=== PATIENT | female | born 1960 | race Caucasian/White ===

== ENCOUNTER → 2020-05-15 | Outpatient (CLI) | payer OTHER | LOC: SJCVC 08:45 | PROVIDERS: ATTEND Internal Medicine Cardiovascular Disease | DX: R94.31 Abnormal electrocardiogram [ECG] [EKG] (principal); I42.0 Dilated cardiomyopathy; I50.22 Chronic systolic (congestive) heart failure ==

== ENCOUNTER 2020-06-01 06:32 | Observation (INO) | payer OTHER ==
[~2020-06-01] VITALS: Ht 157.5 cm; Wt 49.9 kg
[2020-06-01 07:13] VITALS: BP 103/56
[2020-06-01] MEDS ORDERED: NORVASC10 MG PO (07:25)
[2020-06-01] MEDS ORDERED: ASA81BEC PO (07:26)
[2020-06-01] MEDS ORDERED: VITAMIN C500 M2 PO (07:26)
[2020-06-01] MEDS ORDERED: LIPITOR10 MG PO (07:26)
[2020-06-01] MEDS ORDERED: CARVEDILOL12.5 MG PO (07:28)
[2020-06-01] MEDS ORDERED: B COMPLEX1 EACH PO (07:28)
[2020-06-01] MEDS ORDERED: VRAYLAR1.5 MG PO (07:28)
[2020-06-01] MEDS ORDERED: LEVOXYL88 MCG PO (07:29)
[2020-06-01] MEDS ORDERED: PRINIVIL20 M1 PO (07:30)
[2020-06-01] MEDS ORDERED: SINGULAIR 10 MG10 MG PO (07:30)
[2020-06-01] MEDS ORDERED: OMEPRAZOLE 20 M20 M1 PO (07:31)
[2020-06-01] MEDS ORDERED: OXYBUTYNIN 5 MG5 M1 PO (07:31)
[2020-06-01] MEDS ORDERED: SEROQUEL 100 M100 M1 PO (07:32)
[2020-06-01 07:40] LABS: ABSOLUTE NEUTROPHILS 4.8 thou/uL (1.4-8.2); BASOPHILS 0.6 % (0.0-2.0); EOSINOPHILS 2.6 % (0.0-3.0); HEMATOCRIT 38.3 % (37.0-47.0); HEMOGLOBIN 13.4 gm/dL (12.0-15.0); LYMPHOCYTES 25.9 % (24.0-44.0); MCH 33.5 pg (26.0-34.0); MCHC 34.9 g/dL (28.0-37.0); MCV 96.1 fL (80.0-100.0); MONOCYTES 10.2 % (1.0-8.0); PLATELET COUNT 252 thou/uL (150-400); POLYS 60.7 % (36.0-66.0); RBC 3.99 mil/uL (4.20-5.00)
[2020-06-01 07:51] LABS: POTASSIUM 3.3 mmol/L (3.5-5.1)
[2020-06-01 07:57] LABS: ALBUMIN 3.5 g/dL (3.4-5.0); TOTAL PROTEIN 7.2 g/dL (6.4-8.2)
[2020-06-01 08:07] LABS: APTT 27.1 Seconds (24.5-32.8)
[2020-06-01 13:00] VITALS: BP 110/71
--- NOTE | 2020-06-01 13:16 | P ---
[facility] [place] [address] PROCEDURE REPORT Name: RAJESH SHERWOOD Room #: 211-P [facility].#: [id number] Admission: 06/01/20 Attend Phys: Sergo Hernández MD Discharge: Date of : 62 Report #: [id number] THIS REPORT FOR: cc: YUNG HALL Physician not on staff Sergo Hernández MD ~ CC: YUNG Nevarez DO Sergo Hernández Physician staff PROCEDURES PERFORMED: Dual-chamber ICD implantation. PREOPERATIVE DIAGNOSES: 1. Chronic left ventricular systolic heart failure. 2. Ischemic cardiomyopathy. 3. [place] [employer] functional class II-III heart failure. HISTORY: The patient is a 59-year-old female with a history of chronic LV systolic heart failure, EF of less than 35% with an ischemic cardiomyopathy and [place] [employer] functional class II-III heart failure symptoms. She was here for ICD implantation for primary prevention of sudden cardiac . She also has sinus bradycardia, on medications and will therefore undergo dual-chamber device. ANESTHESIA: The patient underwent MAC anesthesia with no anesthesia-related complications. DESCRIPTION OF PROCEDURE: The patient underwent informed consent. We discussed the details of the procedure including the risks, which include, but not limited to bleeding, infection, vascular damage, cardiac perforation, pneumothorax. The patient was brought to EP laboratory in fasting and sedated state, prepped and draped in a sterile fashion and I injected lidocaine at the incision site. Incision was made. A pocket was created over the prepectoral fascia. Access was obtained twice to the left axillary vein. Sheaths were positioned using the modified Seldinger technique and a single coil ICD lead was positioned in the right ventricular apex and an atrial lead was positioned in right atrial appendage both with adequate pacing and sensing thresholds and these were sutured to the prepectoral fascia. Device was connected. Tug test was performed. The pocket was irrigated with vancomycin. The pocket was closed in 2 layers and surgical glue was placed to outer skin layer. The patient awoke neurologically and hemodynamically intact. No complications and no significant bleeding. The implanted device was a Medtronic, model #EQDO0G1, serial #[id number]. The atrial lead was a Medtronic model #5076, 45 cm, serial #[id number] with a P-wave [facility] [address] [place] [address] PROCEDURE REPORT Name: RAJESH SHERWOOD ROCCO Ronny Room #: 211-P [facility] CharanKarina#: [id number] Admission: 06/01/20 Attend Phys: Sergo Hernández MD Discharge: Date of : 62 Report #: [id number] of 3.3 millivolts, pacing impedance of 686 ohms, pacing threshold 0.8 volts at 0.5 milliseconds. The RV lead was a Medtronic model #6935, 55 cm, serial #[id number] with R-wave of 8.3 millivolts, pacing impedance of 706 ohms and a pacing threshold 0.4 volts at 0.5 milliseconds. The device was programmed to DDDR 60-130 mode. VT monitor zone was set at 150-180. The VT zone was set at 180-220 with burst followed by ramp followed by max output shocks. VF zone was set at greater than 220 beats per minute with ATP while charging followed by max output shocks. CONCLUSIONS: 1. Successful dual-chamber ICD implantation. 2. Satisfactory atrial and ventricular pacing and sensing thresholds. <ELECTRONICALLY SIGNED> By: Sergo Hernández MD 06/01/20 1316 1023 1314 Sergo Hernández MD /nt
--- NOTE | 2020-06-01 14:30 | NUR ---
PT ARRIVED TO UNIT APPROX 13:05. DENIES PAIN. IMMOBILIZER IN PLACE. ADMISSION INFORMATION COMPLETED. EDUCATION PROVIDED TO PATIENT. FREQUENTLY USED ITEMS WITHIN REACH OF PATIENT. PT AGREES TO CALL FOR ASSIST.
[2020-06-01 16:48] VITALS: BP 111/72
[2020-06-01 20:00] VITALS: BP 125/62
[2020-06-02 00:10] VITALS: BP 141/71
[2020-06-02 04:13] VITALS: BP 138/84
--- NOTE | 2020-06-02 04:22 | NUR ---
PT IS ALERT AND ORIENTED X4. LUNGS ARE CLEAR ON ROOM AIR. ABDOMEN IS SOFT AND FLAT. BOWEL SOUNDS POSITIVE. REQUSTED PAIN MEDS FOR LEFT CHEST PAIN. PAIN MEDS GIVEN TO PT. UP WITH MINIMAL ASSIST TO BATHROOM TO VOID. RESTING AND WATCHING TV THIS EVENING. CALL LIGHT WITHIN REACH IF NEEDS ASSISTANCE
[2020-06-02 07:14] VITALS: BP 110/64
[2020-06-02 07:45] VITALS: BP 110/64
[2020-06-02 10:50] VITALS: BP 110/64
[2020-06-02 11:05] VITALS: BP 113/72
== END 2020-06-02 12:30 | disposition home or self-care (01) ==
LOC: CATH 06:32 → LAB 09:46 → CATH 11:41 → LAB 12:19 → 2N 13:12 → LAB 15:42 → 2N 06-02 12:30
PROVIDERS: ADMIT Internal Medicine Cardiovascular Disease; ATTEND Internal Medicine Cardiovascular Disease
DX: Z03.818 Encounter for observation for suspected exposure to other biological agents ruled out (principal); I11.0 Hypertensive heart disease with heart failure; I50.22 Chronic systolic (congestive) heart failure; I25.5 Ischemic cardiomyopathy; E78.5 Hyperlipidemia, unspecified; E03.9 Hypothyroidism, unspecified; J45.909 Unspecified asthma, uncomplicated; F31.9 Bipolar disorder, unspecified; F43.10 Post-traumatic stress disorder, unspecified; Z86.73 Personal history of transient ischemic attack (TIA), and cerebral infarction without residual deficits

== ENCOUNTER → 2020-06-12 | Outpatient (CLI) | payer OTHER ==
[~2020-06-12] MED LIST: ASA81BEC PO; B COMPLEX1 EACH PO; CARVEDILOL12.5 MG PO; LEVOXYL88 MCG PO; LIPITOR10 MG PO; NORVASC10 MG PO; OMEPRAZOLE 20 M20 M1 PO; OXYBUTYNIN 5 MG5 M1 PO; PRINIVIL20 M1 PO; SEROQUEL 100 M100 M1 PO; SINGULAIR 10 MG10 MG PO; VITAMIN C500 M2 PO; VRAYLAR1.5 MG PO
== END ==
LOC: SJCVC 08:37
PROVIDERS: ATTEND Internal Medicine Cardiovascular Disease
DX: Z45.02 Encounter for adjustment and management of automatic implantable cardiac defibrillator (principal); I42.8 Other cardiomyopathies; I10 Essential (primary) hypertension; E03.9 Hypothyroidism, unspecified; E78.5 Hyperlipidemia, unspecified; J45.909 Unspecified asthma, uncomplicated; F17.200 Nicotine dependence, unspecified, uncomplicated; Z79.82 Long term (current) use of aspirin; Z79.899 Other long term (current) drug therapy; Z82.49 Family history of ischemic heart disease and other diseases of the circulatory system

== ENCOUNTER → 2020-09-20 | Outpatient (CLI) | payer OTHER | LOC: SJCVC 13:50 | PROVIDERS: ATTEND Internal Medicine Cardiovascular Disease | DX: R94.31 Abnormal electrocardiogram [ECG] [EKG] (principal); I42.9 Cardiomyopathy, unspecified; J45.909 Unspecified asthma, uncomplicated; I11.0 Hypertensive heart disease with heart failure; I50.22 Chronic systolic (congestive) heart failure; E78.5 Hyperlipidemia, unspecified; E03.9 Hypothyroidism, unspecified; I25.2 Old myocardial infarction; F17.200 Nicotine dependence, unspecified, uncomplicated; Z95.810 Presence of automatic (implantable) cardiac defibrillator ==